=== PATIENT | female | born 1945 | race Caucasian/White ===

== ENCOUNTER 2023-09-16 06:45 | Emergency (ER) | payer MEDICARE, OTHER, SELFPAY ==
[2023-09-16 06:57] VITALS: BP 133/76; PULSE 91; RESP 20; TEMP 36.7; O2SAT 95; BMI 21.9
--- NOTE | 2023-09-16 07:13 | CRLHL7_ITS ---
For Patients: As a result of the Cures Act, medical imaging exams and procedure reports are released immediately into your electronic medical record. You may view this report before your referring provider. If you have questions, please contact your health care provider. Indication: Fall, shoulder pain Technique: Three views, 4 films Comparison: None Findings/Impression: Bones: No evidence of fracture. Joint spaces: Narrowing of the acromiohumeral distance consistent with underlying rotator cuff disease. Osteoarthritis at the glenohumeral joint with marginal osteophytes as well as acromioclavicular joint. Soft tissues: Unremarkable. Dictated by Vimal Koenig MD @ 09/16/2023 8:17:08 AM (Electronically Signed)
--- NOTE | 2023-09-16 07:13 | CRLHL7_ITS ---
For Patients: As a result of the Century Cures Act, medical imaging exams and procedure reports are released immediately into your electronic medical record. You may view this report before your referring provider. If you have questions, please contact your health care provider. INDICATION: Headache after a fall. TECHNIQUE: Head CT without contrast. COMPARISON: None available. FINDINGS: CSF spaces: Within normal limits for age. Brain parenchyma and extra-axial spaces: There are nonspecific low attenuation white matter changes consistent with chronic microvascular disease. Mild prominence of the convexity sulci consistent with age-related volume loss. Senescent right basal ganglia calcifications. No sign of mass, hemorrhage, or midline shift. Skull base and calvarium: The visualized paranasal sinuses and mastoid air cells demonstrate no acute or significant findings. The visualized orbits are grossly unremarkable. No skull fractures. IMPRESSION: No acute intracranial abnormality identified. Please note that all CT scans at this facility use dose modulation, iterative reconstruction, and/or weight-based dosing when appropriate to reduce radiation dose to as low as reasonably achievable. Dictated by Vivien Billingsley MD @ 09/16/2023 7:48:26 AM (Electronically Signed)
--- NOTE | 2023-09-16 07:13 | CRLHL7_ITS ---
For Patients: As a result of the Cures Act, medical imaging exams and procedure reports are released immediately into your electronic medical record. You may view this report before your referring provider. If you have questions, please contact your health care provider. INDICATION: Fall, new C5-C6 radiculopathy. TECHNIQUE: CT cervical spine without contrast. COMPARISON: None available.. FINDINGS: Vertebrae: Alignment is normal. There is a nondisplaced right posterior 1st rib fracture no additional fractures seen. There are bilateral cervical ribs. Discs and facet joints: There are diffuse degenerative changes in the disc spaces and facet joints, which is severe from C3-C5 and at C6-C7. Extraspinal findings: Atherosclerotic carotid artery calcifications. Subcentimeter hypodense right thyroid nodule. Minimal scarring in the visualized lung apices. No large pneumothorax. IMPRESSION: 1. Nondisplaced right posterior 1st rib fracture. No cervical spine fracture visualized. 2. Multilevel degenerative spondylosis. Please note that all CT scans at this facility use dose modulation, iterative reconstruction, and/or weight-based dosing when appropriate to reduce radiation dose to as low as reasonably achievable. Dictated by Vivien Billingsley MD @ 09/16/2023 7:54:33 AM (Electronically Signed)
--- NOTE | 2023-09-16 07:14 | ED.GENADULT ---
HPI - General Adult General Chief complaint: Fall/Minor Trauma Stated complaint: fall Time Seen by Provider: 09/16/23 06:47 Source: patient and family Mode of arrival: ambulatory Limitations: no limitations History of Present Illness HPI narrative: 78-year-old female presents to the ED 6 days after a mechanical type fall. Patient reports that on 09/11, she was walking to lamas the window to adjust the curtains. They were Mary presents stacked along the floor. She knew they were there but did not notice them when she was stepping, tripped over 1, falling into the window, hitting her left shoulder and head area and then slipping to the ground. No seizure, no loss of consciousness. No presyncopal type events contributing to the fall. No cardiac type symptoms or neurological stroke-like changes. She was able to get herself up but has been struggling with right arm pain and difficulty with abduction and rotation of the shoulder ever since. Has pain in the right shoulder blade area, right occipital area and right lower neck posteriorly. Pain does radiate down the right arm to the elbow. Patient did not want to upset the family she was staying with, therefore she waited until she got back home last night to inform her daughter of the injury. Daughter brings her into the ED this morning for further evaluation. There is no vomiting, no vision changes, no neurological changes so seated with the fall besides difficulty moving the right arm. Patient reports tenderness in the scapula area, achy and constant and worse with movement. Denies prior history of similar symptoms. Does not use any anticoagulants. No fever or recent illness. No difficulty moving legs, no back pain. Has not tried taking any medication today to help with her pain. Past medical history notable for depression. Reports that her only home medication is sertraline. Denies allergies. Socially she is a nonsmoker, recent family trip as stated above. ROS is notable for the generalized symptoms of fatigue and low energy for the last few days as well as feeling sad in addition to the musculoskeletal changes as described above. Otherwise denies times 12 systems. [facility] Social History Smoking Status: Former smoker How often do you have a drink containing alcohol: 2-4 times a month AUDIT-C Alcohol total score: 2 Non-prescribed substance use: denies use Exam Const: Vital Signs, click to edit/add: Vital Signs - 24 hr 09/16/23 06:57 Temperature 98.0 F Pulse Rate [Right Pulse Oximeter] 91 Respiratory Rate 20 Blood Pressure [Le ft Upper Arm] 133/76 Pulse Oximetry 95 Oxygen Delivery Me thod Room Air Documenting provider has reviewed patient's vital signs: yes Common normals: no apparent distress and alert General appearance: well kempt Other: Mildly hard of hearing and does seem to have some very mild cognitive impairment HENMT: Common normals: normocephalic, TM's normal bilaterally and external nose normal Head and scalp: normocephalic Face and sinus: normal facial exam Nose: external nose normal Tympanic membrane: TM's normal bilaterally Mouth: oral and palatal mucosa normal Throat: posterior oropharynx normal Eye: Common normals: PERRL, EOMs intact bilaterally and conjunctivae normal General eye: normal appearance of both eyes Conjunctiva: conjunctiva(e) normal Pupil: PERRL Neck & C-Spine: Common normals: full ROM and no meningeal signs Other: Tenderness to paraspinal muscles and also along C6/C7 area with cervical palpation. Chest: Common normals: inspection of chest normal Resp: Common normals: normal respiratory effort, no use of accessory muscles and clear to auscultation bilaterally Effort & inspection: able to speak in complete sentences Auscultation: clear to auscultation bilaterally Cardio: Common normals: regular rate, regular rhythm, S1 normal heart sound, S2 normal heart sound and no murmurs Rate: regular rate Rhythm: regular rhythm Heart sounds: S1 normal and S2 normal Extremity: Other: Left shoulder with normal range of motion. Right shoulder with limited abduction to about 30?, tenderness with internal or external rotation. Negative impingement signs on exam. Tenderness to palpation of supraspinatus and infraspinatus area. Generalized shoulder weakness. Neuro: Sensorium/orientation: alert Meningeal signs: no meningeal signs Speech: speech normal Other: Slow, shuffling gait but without other obvious signs of neurological asymmetry or stroke-like symptoms. Psych: Appearance: well kempt Attitude: calm Insight: fair Judgement: fair Skin: Common normals: no rashes or lesions noted Narrative: No bruising, injury or trauma. General skin exam: no rashes or lesions noted Course Course ED Course: Headache, neck pain and shoulder weakness following fall 6 days ago. Low risk for intracranial hemorrhage or cervical spine injury but tender on exam with persistent symptoms that are concerning. Recommend CT scan of the head, C-spine and x-ray of the right shoulder. Will give 1000 mg of Tylenol p.o. x1. Await clinical response and imaging. I do not think there is any benefit blood work in the fall does sound rather mechanical. Do not recommend further metabolic workup unless imaging finding suggest otherwise. Reevaluation(s) Time of Reevaluation #1: 08:28 Reevaluation #1: Discussed CT and x-ray findings with patient, posterior right 1st rib fracture. Discussed pain control with Tylenol and ibuprofen. Pain is improving somewhat on the Tylenol given here in the ED. Will offer sling for pain control only. Discussed range of motion exercise. Follow-up with primary care provider in a week, would benefit from referral to physical therapy at the time. Alarm symptoms reviewed that would warrant ED presentation. She verbalizes understanding and agreement. Vital Signs Vital signs: Initial Vital Signs Temperature 98.0 F 09/16/23 06:57 Temperature Source Temporal Artery Scan 09/16/23 06:57 Pulse Rate 91 09/16/23 06:57 Respiratory Rate 20 09/16/23 06:57 Blood Pressure 133/76 09/16/23 06:57 Blood Pressure Mean 95 09/16/23 06:57 Blood Pressure Position Sitting 09/16/23 06:57 Pulse Oximetry 95 09/16/23 06:57 Oxygen Delivery Method Room Air 09/16/23 06:57 Vital Signs Temperature 98.0 F 09/16/23 06:57 Pulse Rate 91 09/16/23 06:57 Respiratory Rate 20 09/16/23 06:57 Blood Pressure 133/76 09/16/23 06:57 Pulse Oximetry 95 09/16/23 06:57 Oxygen Delivery Method Room Air 09/16/23 06:57 Temperature 98.0 F 09/16/23 06:57 Pulse Rate 91 09/16/23 06:57 Respiratory Rate 20 09/16/23 06:57 Blood Pressure 133/76 09/16/23 06:57 Pulse Oximetry 95 09/16/23 06:57 Oxygen Delivery Method Room Air 09/16/23 06:57 Medications Administered Medications: Discontinued Medications Generic Name Dose Route Start Last Admin Trade Name Freq PRN Reason Stop Dose Admin Acetaminophen 650 mg 09/16/23 07:13 09/16/23 07:30 Acetaminophen 325 Mg Tablet PO 09/16/23 07:14 650 mg ONCE ONE Administration Medical Decision Making Imaging Data CT scan - head: Attestation: I have reviewed the pertinent imaging results. My impression: Mild degenerative changes but no obvious intracranial hemorrhage or skull fracture Radiologist's impression: IMPRESSION: No acute intracranial abnormality identified. CT cervical spine: Attestation: I have reviewed the pertinent imaging results. My impression: No obvious cervical fracture but there are a lot of degenerative changes.. Radiologist reporting right posterior 1st rib fracture Radiologist's impression: IMPRESSION: 1. Nondisplaced right posterior 1st rib fracture. No cervical spine fracture visualized. 2. Multilevel degenerative spondylosis. Shoulder x-ray: Attestation: I have reviewed the pertinent imaging results. My impression: Lots of arthritis but no fracture Radiologist's impression: Findings/Impression: Bones: No evidence of fracture. Joint spaces: Narrowing of the acromiohumeral distance consistent with underlying rotator cuff disease. Osteoarthritis at the glenohumeral joint with marginal osteophytes as well as acromioclavicular joint. Soft tissues: Unremarkable. Dictated by Vimal Koenig MD @ 09/16/2023 8:17:08 AM Discharge Plan Discharge Clinical Impression: Fracture of one rib of right side, Shoulder sprain Patient Disposition: Home w/ Parent or Adult Condition: Stable Instructions: Rib Fracture (ED), Shoulder Sprain (ED) Additional Instructions: It seems as though you have a sprain of your shoulder, neck and head contusion from your fall. There is also a small nondisplaced fracture of the back right upper rib. There is quite a bit of arthritis in both your neck and shoulder which are likely making the pain worse. I recommend a shoulder sling to help with this comfort for the next week. I would like for you to make a follow-up appointment with her primary care doctor in 1 week to recheck things. You would likely benefit from physical therapy of the shoulder and neck. For pain, I recommend Tylenol Arthritis 2 tablets 2 times daily for pain. You may also use ibuprofen 400 mg up to every 6 hours. It is okay to use heat or ice if these feel helpful. It is common for the pain to radiate down the arm a little bit. Your strength should improve as the sprain and fracture heal, but you may require some assistance with bathing, shopping and house work until then. Activity Level: Activity as Tolerated Discharge Diet: Regular Follow Up/Referrals: Kristi Phan DO [Primary Care Provider] - Stand Alone Forms: My[facility] Info Instructions
[2023-09-16] MEDS: ACETAMINOPHEN 325 MG TABLET 650 MG PO (07:30)
== END 2023-09-16 08:50 | disposition home or self-care (01) ==
PROVIDERS: Emergency Provider Family Medicine; PCP Family Medicine
DX: M25.511 Pain in right shoulder (principal); S22.31XA Fracture of one rib, right side, initial encounter for closed fracture; W01.0XXA Fall on same level from slipping, tripping and stumbling without subsequent striking against object, initial encounter
CPT/HCPCS: 70450; 72125; 73030; 99284; A9270

== ENCOUNTER 2024-09-28 11:48 | Outpatient (CLI) | payer MEDICARE, OTHER, SELFPAY ==
--- NOTE | 2024-09-28 13:22 | P.ANES_ITS ---
Anesthesia Charges Start Date/Time Anesthesia Start Date: 09/28/24 Anesthesia Start Time: 12:48 Stop Date/Time Anesthesia Stop Date: 09/28/24 Anesthesia Stop Time: 13:20 Summary Extremes of Age - Over 70 or under 1: DIRECTOR PRESALES Coding CPT Codes CPT Codes: WILBERT LWR INTST NDSC NOS - 66184 ([id number]) P2 - PATIENT W/MILD SYST DISEASE, QZ - DIRECTOR PRESALES SVC W/O BUTCHER FISH BY Additional Codes: Summary - Extremes of Age - Over 70 or under 1: DIRECTOR PRESALES ([id number])
--- NOTE | 2024-09-28 13:22 | W.ANESCHARGE ---
Anesthesia Charges Start Date/Time Anesthesia Start Date: 09/28/24 Anesthesia Start Time: 12:48 Stop Date/Time Anesthesia Stop Date: 09/28/24 Anesthesia Stop Time: 13:20 Summary Extremes of Age - Over 70 or under 1: PLANE RUNNER Coding CPT Codes CPT Codes: WILBERT LWR INTST NDSC NOS - 43429 ([id number]) P2 - PATIENT W/MILD SYST DISEASE, QZ - PLANE RUNNER SVC W/O STUDENT LIFE VICE PRESIDENT BY Additional Codes: Summary - Extremes of Age - Over 70 or under 1: PLANE RUNNER ([id number])
== END 2024-09-28 11:49 | disposition home or self-care (01) ==
LOC: OP CLINIC 11:52
PROVIDERS: PCP Family Medicine; Visit Provider Internal Medicine Gastroenterology
DX: Z12.11 Encounter for screening for malignant neoplasm of colon (principal); D12.3 Benign neoplasm of transverse colon; D12.5 Benign neoplasm of sigmoid colon; Q43.8 Other specified congenital malformations of intestine; Z86.0101 Personal history of adenomatous and serrated colon polyps
CPT/HCPCS: 00811; 45385; 88305; 99100; J2405; J2704

== ENCOUNTER 2024-12-23 05:01 | Emergency (ER) | payer MEDICARE, OTHER, SELFPAY ==
--- OUTSIDE RECORDS SUMMARY | 2024-12-23 05:03 | XMS_ITS | Clinical Summary ---
Author Organization [employer] [facility] Address [address] [place] [address] Care Team Providers Care Photographic Technician Name Role Phone Kristi Phan Primary Care Provider Yonathan Ornelas MD Unavailable Unavailable Arleen Ureña Rich Unavailable [phone] Allergies No known active allergies Medications ibuprofen (ADVIL; MOTRIN) 200 mg tablet Take 1 tablet by mouth 4 times daily if needed. One tablet in the am and during the day as needed and 2-3 at bed time depending on pain level 0 10/21/19 10 Active Calcium Carbonate-Vit D3-Min (CALCIUM 600 + MINERALS) 600-200 mg-unit tablet Take 1 tablet by mouth once daily. 0 10/22/19 11 Active naproxen (ALEVE) 220 mg tablet Take 1 tablet by mouth every 8 hours if needed. 0 04/16/20 15 Active cholecalciferol (VITAMIN D) 1,000 unit capsule Take 1 capsule by mouth once daily. 0 12/03/19 16 Active d-mannose powd 1 TEASPOON 1 X PER week MIXED WITH 1/2 CUP WATER 0 02/26/20 20 Active medication order composer Cranactin veg cap for urinary tract health 0 02/26/20 20 Active medication order composer Evening primrose oil - one softgel per day 0 02/26/20 20 Active medication order composer Urinary tract PROBIOTIC - 2 CAPSULES DAILY 0 02/26/20 20 Active Nxdcx-4-CWI-EPA-Fi sh Oil 1,000 mg (120 mg-180 mg) cap Take 1 capsule by mouth. 0 02/26/20 20 Active zinc 50 mg tablet As needed. 0 02/26/20 20 Active medication order composer Vitamin C 500mg once daily. 0 02/27/20 20 Active LORazepam (ATIVAN) 0.5 mg tabIndications:Sev ere anxiety Take 0.5-1 tablets by mouth 2 times daily if needed for Anxiety. 10 tablet 1 03/05/20 20 Active lecithin, soy, bulk, powd As directed. 10g per dose. One dose daily granules 0 05/12/20 20 Active acetaminophen (TYLENOL EXTRA STRGTH) 500 mg tablet Take 2 tablets by mouth every 6 hours if needed. Max acetaminophen dose: 4000mg in 24 hrs. 0 08/29/20 20 Active QUERCETIN ORAL Take by mouth. Active polyethylene glycol-electrolyte (GOLYTELY) 236-22.74-6.74 -5.86 gram suspensionIndicati ons:Encounter for screening colonoscopy Drink 2 liters (half the bottle) the day before colonoscopy and 2 liters (remaining prep) 6 hours prior to colonoscopy appointment. 4000 mL 09/20/19 25 Active ondansetron (Zofran) 4 mg tabletIndications: Nausea Take 1 Tablet (4 mg) by mouth every 8 hours if needed for Nausea/Vomiting. 8 Tablet 09/24/19 25 Active sertraline (ZOLOFT) 100 mg tabletIndications: Severe anxiety TAKE ONE TABLET BY MOUTH EVERY DAY IN THE MORNING. 90 Tablet 3 10/30/19 25 Active rosuvastatin 10 mg tabletIndications: Hyperlipidemia, unspecified hyperlipidemia type Take 1 Tablet (10 mg) by mouth at bedtime. 90 Tablet 3 12/14/19 25 Active Active Problems Problem Noted Date Diagnosed Date Anxiety 12/13/2024 Dyslipidemia 12/13/2024 Arthritis of left foot 10/24/2018 Elevated fasting glucose 03/17/2016 Sensorineural hearing loss, bilateral 05/16/2015 Adenomatous colon polyp 10/05/2013 Overview (10/03/2024): Colonoscopy 09/2013 polyp repeat in 5 years Colonoscopy 10/2018 long colon, few diverticuli, repeat in 5 years Colonoscopy 09/2024 2-SSA, no repeat give age over 80 Vitamin D deficiency 01/20/2012 Esophageal reflux 11/17/2006 Resolved Problems Problem Noted Date Diagnosed Date Resolved Date Depression, recurrent 03/04/20222022 Encounters Date Type Department Care Team Description 12/13/2024 Telephone [facility] [address] [place] [address] Kristi Phan DO Results 12/12/2024 2:15 PM CDT Office Visit [facility] [address] [place] [address] Kristi Phan DO Medicare ANNUAL (subsequent) Visit (79 yr/); Derm Problem (red spots on right side cheek/brown spot on left side cheek/mole on chest area) 12/12/2024 Travel 10/26/2024 Refill [facility] [address] [place] [address] Kristi Phan DO Refill Request (Sertraline) 10/03/2024 Telephone [facility] [address] [place] [address] Kristi Phan DO Appointment (Up Coming MRI) 10/02/2024 Telephone [facility] [address] [place] [address] Kristi Phan DO Results 09/28/2024 11:45 AM POWER MARKETER Office Visit [facility] at [address] [address] Lazaro Larose MD 09/28/2024 Lab Requisition [facility] [phone] Lazaro Larose MD 09/28/2024 Travel 09/26/2024 Telephone [facility] [address] [place] [address] Lazaro Larose MD 09/24/2024 Telephone [facility] [address] [place] [address] Kristi Phan DO returning call (Return call) 09/24/2024 Refill [facility] [address] [place] [address] Lazaro Larose MD Questions from Last 3 Months Immunizations Immunization Administration Dates Next Due Amb Influenza, Inactivated A IIV4 (Age 65+ Years) Preserv Free 07/10/2020 Influenza, IIV3 (Age >=3 years) 08/15/2007 Tdap 10/22/2010 Family History Medical History Relation Name Comments Cancer Father brain Cancer-breast Sister 2 Cancer-breast Sister 3 Diabetes Sister 4 nephropathy Relation Name Status Comments Father (Age 68) brain ca Mother (Age 70s) dementia Sister 1 (Age 38) MVA Sister 2 Sister 3 Sister 4 Social History Tobacco Use Types Packs/Day Years Used Date Smoking Tobacco: Former Cigarettes 0.5 13 0 09/12/1961 - 09/12/1974 Smokeless Tobacco: Never Tobacco Cessation:Counseling Given: Not Answered Alcohol Use Standard Drinks/Week Comments Not Currently 7 (1 standard drink = 0.6 oz pur e alcohol) OCCASSIONAL PHQ-2 Answer Date Recorded PHQ-2 TOTAL SCORE 2 12/12/2024 Social Connections Answer Date Recorded Do you often feel lonely or isolated from those around you? 0 12/12/2024 Financial Resource Strain Answer Date R ecorded Difficulty of Paying Living Expenses 3 12/12/2024 Difficulty of Paying Living Expenses Not on file 12/12/2024 Food Insecurity Answer Date Recorded Do you worry your food will run out before you are able to buy more? 1 12/12/2024 Transportation Needs Answer Date Record ed Does lack of transportation keep you from medica l appointments? 1 12/12/2024 Does lack of transportation keep you from work, meetings or getting things that you need? 1 12/12/2024 Housing Stability Answer Date Recorded What is your housing situation today? 1 12/12/2024 Utilities Answer Date Recorded Do you have trouble paying f or utilities (for example, heat, electricity, water, phone)? 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 Not on file Not on yola e Not on file Obstetrics History Para Term AB IAB SAB Ectopic Multiple Livin g Live Births 2 2 2 Date Outcome GA Total Labor Labor/2nd/3rd Weight Sex Type Anes PTL Esther A1 A5 Name Clin Term Term Last Filed Vital Signs Vital Sign Reading Time Taken Comments Blood Pressure 101/59 12/12/2024 2:22 PM CDT Pulse 67 12/12/2024 2:22 PM CDT Temperature 36.6 C (97.9 F) 12/12/2024 2:22 PM CDT Respiratory Rate 18 05/12/2022 8:31 AM CDT Oxygen Saturation 95% 12/12/2024 2:22 PM CDT Inhaled Oxygen Concentration - - Weight 58 kg (127 lb 12.8 oz) 12/12/2024 2:22 PM CDT Height 156.3 cm (5' 1.54) 12/12/2024 2:22 PM CD T Body Mass Index 23.73 12/12/2024 2:22 PM CDT Plan of Treatment Upcoming Encounters Date Type Department Care Team (Late st Contact Info) Description 03/20/2025 2:00 PM CDT Orders Only [facility] [address] [place] [address] Lab, [facility] Maintenance Due Date Last Done Comments Pneumococcal series for age 50+ (1 of 1 - PCV) 1993 Zoster (shingles) series for age 50+ (1 of 2) 1993 RSV vaccine for adults or (1 - 1-dose 75+ series) 2018 Tetanus booster 10/22/2020 10/22/2010, 10/22/2010 COVID-19 vaccine series ( - season) 2024 Influenza Vaccine (Season Ended) 2025 07/10/20 20, 08/15/2007 BMI (ht and wt on same day) for age 18+ 12/12/2025 12/12/2024, 10/24/2023, 05/12/2022, Additional history exists Depression screening for age 12+ 12/13/2025 12/13/2024, 12/12/2024, 02/27/2024, Additional history exists Medicare Wellness for age 65+ 12/13/2025, 10/24/2023, 10/31/2019, Additional history exists Tdap Completed 10/22/2010 DEXA/DXA scan for age 65+ Completed 2014, 02/20/2013, 10/22/2010 (Declined), Additional history exists Procedures Procedure Name Priority Date/Time Associated Diagnosis Comments BASIC METABOLIC PANEL Routine 12/12/2024 3:55 PM CDT Diabetes mellitus screening LIPID PANEL W REFLEX MEASURED LDL Routine 12/12/2024 3:55 PM CDT Dyslipidemia LAB TRACKING EVENT Routine 09/28/2024 1: 10 PM POWER MARKETER PATH TISSUE EXAM Routine 09/28/2024 1:10 PM POWER MARKETER COLONOSCOPY SCREENING Routine 09/28/2024 12:00 AM POWER MARKETER History of colon polyps XR DXA BONE DENSITY 2 SITES AXIAL Routine 03/04/2015 4:28 PM CDT Osteopenia from Last 3 Months or Most Recently Relevant to Health Maintenance Results * (ABNORMAL) LIPID PANEL W REFLEX MEASURED LDL (12/12/2024 3:55 PM CDT) CHOLESTEROL, TOTAL 311(H) <200 mg/dL [employer] HDL CHOLESTEROL 58 > OR = 50 mg/dL [employer] TRIGLYCERIDES 160(H) <150 mg/dL [employer] LDL-CHOLESTEROL 220(H) mg/dL (calc) [employer] Comment: LDL-C levels > or = 190 mg/dL may indicate familial hypercholesterolemia (FH). Clinical assessment and measurement of blood lipid levels should be considered for all first degree relatives of patients with an FH diagnosis. LDL Cholesterol (LDL-C) levels > or = 300 mg/dL may indicate homozygous familial hypercholesterolemia (HoFH). Untreated, these extremely high LDL-C levels can result in premature CV events and mortality. Patients should be identified early and provided appropriate interventions to reduce the cumulative LDL-C burden from . For questions about testing for familial hypercholesterolemia, please call [facility] Client Services at [email or web address]. Honorio Palacios, et al. J National Lipid Association Recommendations for Patient-Centered Management of Dyslipidemia: Part 1 Journal of Clinical Lipidology 2015;9(2), 129-169. Bear Auqino et al. (2014). Homozygous familial hypercholesterolaemia: new insights and guidance for clinicians to improve detection and clinical management. Heart Journal, 35(32), 0293-8792. Reference range: <100 Desirable range <100 mg/dL for primary prevention; <70 mg/dL for patients with CHD or diabetic patients with > or = 2 CHD risk factors. LDL-C is now calculated using the Nigel calculation, which is a validated novel method providing better accuracy than the Friedewald equation in the estimation of LDL-C. Lazaro GERARDO et al. KORINA. 2013;310(19): 6261-3514 (http://education.MyWedding/faq/FLL255) CHOL/HDLC RATIO 5.4(H) <5.0 (calc) Gamar Garrett Zavala NON HDL CHOLESTEROL 253(H) <130 mg/dL (calc) [email or web address] Zavala Comment: Non-HDL level > or = 220 is very high and may indicate genetic familial hypercholesterolemia (FH). Clinical assessment and measurement of blood lipid levels should be considered for all first-degree relatives of patients with an FH diagnosis. For patients with diabetes plus 1 major ASCVD risk factor, treating to a non-HDL-C goal of <100 mg/dL (LDL-C of <70 mg/dL) is considered a therapeutic option. Blood BLOOD SPECIMEN / Unknown 12/12/2024 3:55 PM CDT 12/12/2024 3:55 PM CDT us Kristi Phna DO CHEMISTRY Final Resul t [employer] [facility] [address] [place] [address], [email or web address] [address] [place] [address] * (ABNORMAL) BASIC METABOLIC PANEL (12/12/2024 3:55 PM CDT) [facility] GLUCOSE 93 65 - 99 mg/dL [facility] evans Zavala Comment: Fasting reference interval UREA NITROGEN (BUN) 33(H) 7 - 25 mg/dL [facility] evans Zavala CREATININE 1.40(H) 0.60 - 0.95 mg/dL [facility] ood Lucas EGFR 38(L) > OR = 60 mL/min/1.7 3m2 [facility] BUN/CREATININE RATIO 24(H) 6 - 22 (calc) [facility] SODIUM 137 135 - 146 mmol/L [facility] POTASSIUM 4.3 3.5 - 5.3 mmol/L [facility] CHLORIDE 103 98 - 110 mmol/L [facility] CARBON DIOXIDE 24 20 - 32 mmol/L [facility] ELECTROLYTE BALANCE 10 7 - 17 mmol/L (calc) [facility] CALCIUM 9.5 8.6 - 10.4 mg/dL [facility] Blood BLOOD SPECIMEN / Unknown 12/12/2024 3:55 PM CDT 12/12/2024 3:55 PM CDT us Kristi Nguyen Detert DO CHEMISTRY Final Resul t [facility] [address] [place] [address], [facility] [address] [place] [address] * LAB TRACKING EVENT (09/28/2024 1:10 PM POWER MARKETER) Other (Other) Client Collect / Unknown 09/28/2024 1:10 PM POWER MARKETER 09/28/2024 7:19 PM POWER MARKETER us Lazaro Larose MD LAB BILL ONLY Final Res ult [facility] [address] [place] [address], [place] * PATH TISSUE EXAM (09/28/2024 1:10 PM POWER MARKETER) Case Report Pathology Report Case: [id number] Authorizing Provider: Lazaro Larose MD Collected: 09/28/2024 1310 Ordering Location: [facility] Received: 10/01/2024 0851 Pathologist: Edenilson Miller MD Specimens: A) - Transverse Colon Polyp B) - Sigmoid Colon, polyp 10/02/2024 3:24 PM POWER MARKETER [facility] Final Diagnosis A) COLON, TRANSVERSE, POLYPECTOMY: 1. Sessile serrated adenoma 2. Negative for overt dysplasia 3. Per the colonoscopy report: a. Polyp size: 8 mm b. Resection: Complete c. Retrieval: Complete B) COLON, SIGMOID, POLYPECTOMY: 1. Sessile serrated adenoma 2. Negative for overt dysplasia 3. Per the colonoscopy report: a. Polyp size: 5 mm b. Resection: Complete c. Retrieval: Complete 10/02/2024 3:24 PM POWER MARKETER [facility] at [address] POWER MARKETER Clinical Information Ms. Arnold is a 79 y.o. with personal history of colonic polyps who presents for high risk colon cancer surveillance. 10/02/2024 3:24 PM MERGED WITH [facility] Gross Description A) Received in formalin are 7 myers-pink soft to rubbery polypoid tissues ranging from 2 mm to 7 mm. The largest polyp is inked and sectioned. It is labeled with the patient's name and designated transverse colon polyp. B) Received in formalin is a 6 mm myers-pink rubbery polypoid tissue. The specimen is inked and bisected. Entirely submitted in a single cassette. It is labeled with the patient's name and designated sigmoid colon polyp. Tyler Pete Urias 10/01/2024 9:16 AM 10/02/2024 3:24 PM POWER MARKETER [facility] Microscopic Description The final diagnosis is based on microscopic examination of appropriate sections of all specimens. 10/02/2024 3:24 PM POWER MARKETER [facility] Additional Information Interpreted at [facility], Central Laboratory - [address], [place] [address] 10/02/2024 3:24 PM POWER MARKETER [facility] Other SPECIMEN FROM COLON / Unknown 09/28/2024 1:10 PM POWER MARKETER 10/01/2024 8:51 AM POWER MARKETER Specimen (specimen) SPECIMEN FROM COLON / Unknown 09/28/2024 1:10 PM POWER MARKETER 10/01/2024 8:51 AM POWER MARKETER Lazaro Larose MD PATHOLOGY/CYTOLOGY Final Result [facility] [address] [address], * COLONOSCOPY SCREENING (09/28/2024 12:00 AM POWER MARKETER) us Kristi Phan DO GI PROCEDURE ORD Edited Res ult - Final * (ABNORMAL) XR DXA BONE DENSITY 2 SITES (03/04/2015 4:28 PM CDT) Anatomical Region Laterality Modality Spine, HIPS, HIPL, HIPR Other Narrative 03/24/2015 12:06 PM CDT Please see scanned document for results of this study. us Kristi Phan DO DEXA Final Resul t from Last 3 Months or Most Recently Relevant to Health Maintenance Insurance [employer] ONLY Care Teams Photographic Technician Relationship Specialty Start Date End Date Kristi Phan [place] [address] PCP - General 09/17/08 Yonathan Ornelas MD [address] [place] [address] Ophthalmology Surgery 02/16/13 Arleen Ureña AuD [address] [facility] [place] [address] Audiology 05/16/15
[2024-12-23 05:13] VITALS: BP 152/78; PULSE 77; RESP 16; TEMP 36.7; O2SAT 96
[2024-12-23 06:06] LABS: Basophils Absolute Auto 0.04 K/uL (0.00-0.30); Basophils Percent Auto 0.4 % (0.0-3.0); Eosinophils Absolute Auto 0.03 K/uL (0.00-0.50); Eosinophils Percent Auto 0.3 % (0.0-7.0); Hematocrit 38.9 % (33.0-51.0); Hemoglobin* 12.8 gm/dL (12.0-16.0); Immature Granulocytes Abs Auto 0.01 K/uL (0.00-0.30); Immature Granulocytes Pct Auto 0.1 %; Lymphocytes Percent Auto 16.6 % (20-44); Mean Corpuscular HGB Conc 33 gm/dL (32-36); Mean Corpuscular Hemoglobin 31 pg (26-34); Mean Corpuscular Volume 94 fL (80-100); Monocytes Percent Auto 6.4 % (0.0-11.0); Neutrophils Percent Auto 76.2 % (42.0-72.0); Platelet Count* 184 K/uL (140-440); RDW Coefficient of Variation % 12.8 % (11.5-15.5); Red Blood Count 4.12 m/uL (4.00-5.20); White Blood Count* 9.21 K/uL (4.50-11.00)
[2024-12-23 06:09] LABS: Lactate* 1.2 mmol/L (0.5-1.9)
[2024-12-23 06:17] LABS: Slide Review Reflex No
[2024-12-23 06:28] LABS: Albumin* 4.8 g/dL (3.3-5.0); Chloride* 105 mmol/L (96-114); Potassium* 4.8 mmol/L (3.6-5.1); Sodium* 138 mmol/L (135-149)
[2024-12-23 06:31] LABS: Alanine Aminotransferase* 19 U/L (4-35); Alkaline Phosphatase* 70 U/L (40-150); Anion Gap 10 mEq/L (7-15); Aspartate Amino Transferase* 27 U/L (12-35); Bilirubin Total* 0.8 mg/dL (0.1-1.5); Blood Urea Nitrogen* 20 mg/dL (7-30); Carbon Dioxide* 23 mmol/L (20-32); Creatinine* 1.3 mg/dL (0.5-1.5); Estimated Glomerular Filt Rate 41 ml/min; Total Protein* 7.7 g/dL (6.0-8.3)
[2024-12-23 06:32] LABS: Calcium* 9.6 mg/dL (8.4-10.6); Glucose* 118 mg/dL (60-115)
[2024-12-23 06:51] LABS: NT Pro B Type NatriureticPept* 260 pg/mL
[2024-12-23 07:12] LABS: PCR FLU A Negative PCR FLU A (Negative); PCR FLU B Negative PCR FLU B (Negative); SARS PCR* Negative SARS-CoV-2 (Negative)
[2024-12-23 07:20] VITALS: BP 139/86; PULSE 80; RESP 18; O2SAT 97
--- OUTSIDE RECORDS SUMMARY | 2024-12-23 07:46 | XMS_ITS | Clinical Summary ---
Author Organization [employer] [facility] Address [address] [place] [address] Care Team Providers Care Curriculum Writer Name Role Phone Kristi Phan Primary Care Provider Yonathan Ornelas MD Unavailable Unavailable Arleen Ureña Rich Unavailable [phone] Allergies No known active allergies Medications [...] 2 CAPSULES DAILY 0 02/26/20 20 Active Gqbtt-3-DDC-EPA-Fi sh Oil 1,000 mg (120 mg-180 mg) [...] Type Department Care Team Description 12/13/2024 Telephone [facility] [address] [place] [address] Kristi Phan DO Results 12/12/2024 2:15 PM CDT Office Visit [facility] [address] [place] [address] Kristi Phan DO Medicare ANNUAL (subsequent) Visit (79 yr/); Derm Problem (red spots on right side cheek/brown spot on left side cheek/mole on chest area) 12/12/2024 Travel 10/26/2024 Refill [facility] [address] [place] [address] Kristi Phan DO Refill Request (Sertraline) 10/03/2024 Telephone [facility] [address] [place] [address] Kristi Phan DO Appointment (Up Coming MRI) 10/02/2024 Telephone [facility] [address] [place] [address] Kristi Phan DO Results 09/28/2024 11:45 AM POLICE SURGEON Office Visit [facility] at [address] [address] Lazaro Larose MD 09/28/2024 Lab Requisition [facility] [phone] Lazaro Larose MD 09/28/2024 Travel 09/26/2024 Telephone [facility] [address] [place] [address] Lazaro Larose MD 09/24/2024 Telephone [facility] [address] [place] [address] Kristi Phan DO returning call (Return call) 09/24/2024 Refill [facility] [address] [place] [address] Lazaro Larose MD Questions from Last 3 [...] on file Legal Sex Female 7:19 AM POLICE SURGEON Gender Identity Not on file Sexual Orientation Not on file 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 Not on file Not on [...] Description 03/20/2025 2:00 PM CDT Orders Only [facility] [address] [place] [address] Lab, [facility] Health Maintenance Due Date Last [...] TRACKING EVENT Routine 09/28/2024 1: 10 PM POLICE SURGEON PATH TISSUE EXAM Routine 09/28/2024 1:10 PM POLICE SURGEON COLONOSCOPY SCREENING Routine 09/28/2024 12:00 AM POLICE SURGEON History of colon polyps XR DXA BONE DENSITY 2 SITES AXIAL Routine 03/04/2015 4:28 PM CDT Osteopenia from Last 3 Months or Most Recently Relevant to Health Maintenance Results * (ABNORMAL) LIPID PANEL W REFLEX MEASURED LDL (12/12/2024 3:55 PM CDT) CHOLESTEROL, TOTAL 311(H) <200 mg/dL [employer] HDL CHOLESTEROL 58 > OR = 50 mg/dL [employer] TRIGLYCERIDES 160(H) <150 mg/dL [employer] LDL-CHOLESTEROL 220(H) mg/dL (calc) [employer] Comment: LDL-C levels > or = 190 [...] about testing for familial hypercholesterolemia, please call [employer] Client Services at [email or web address]. Honorio Palacios, et al. J National Lipid Association Recommendations for Patient-Centered Management of Dyslipidemia: Part 1 Journal of Clinical Lipidology 2015;9(2), 129-169. Bear Aquino et al. (2014). Homozygous familial hypercholesterolaemia: new insights and guidance for clinicians to improve detection and clinical management. Heart Journal, 35(32), 6332-1821. Reference range: <100 Desirable range <100 mg/dL for primary prevention; <70 mg/dL for patients with CHD or diabetic patients with > or = 2 CHD risk factors. LDL-C is now calculated using the Nigel calculation, which is a validated novel method providing better accuracy than the Friedewald equation in the estimation of LDL-C. Lazaro GERARDO et al. KORINA. 2013;310(19): 0732-2693 (http://education.Ranovus/faq/AHE356) CHOL/HDLC RATIO 5.4(H) <5.0 (calc) [employer] Garrett Zavala NON HDL CHOLESTEROL 253(H) <130 mg/dL (calc) [employer] Zavala Comment: Non-HDL level > or = [...] CDT 12/12/2024 3:55 PM CDT us Kristi Phan DO CHEMISTRY Final Resul t [employer] [facility] [address] [place] [address], [facility] [address] [place] [address] * (ABNORMAL) BASIC METABOLIC PANEL (12/12/2024 3:55 PM CDT) [facility] GLUCOSE 93 65 - 99 mg/dL [employer] evans Zavala Comment: Fasting reference interval UREA NITROGEN (BUN) 33(H) 7 - 25 mg/dL [employer] evans Zavala CREATININE 1.40(H) 0.60 - 0.95 mg/dL [employer] ood Lucas EGFR 38(L) > OR = [...] Detert DO CHEMISTRY Final Resul t [facility] [address] [place] [address], [facility] [address] [place] [address] * LAB TRACKING EVENT (09/28/2024 1:10 PM POLICE SURGEON) Other (Other) Client Collect / Unknown 09/28/2024 1:10 PM POLICE SURGEON 09/28/2024 7:19 PM POLICE SURGEON us Lazaro Larose MD LAB BILL ONLY Final Res ult [facility] [address] [place] [address], [place] * PATH TISSUE EXAM (09/28/2024 1:10 PM POLICE SURGEON) Case Report Pathology Report Case: [id number] Authorizing Provider: Lazaro Larose MD Collected: 09/28/2024 1310 Ordering Location: [facility] Received: 10/01/2024 0851 Pathologist: Edenilson Miller MD Specimens: A) - Transverse Colon Polyp B) - Sigmoid Colon, polyp 10/02/2024 3:24 PM POLICE SURGEON [facility] Final Diagnosis A) [...] Complete c. Retrieval: Complete 10/02/2024 3:24 PM POLICE SURGEON [facility] at [address] POLICE SURGEON Clinical Information Ms. Arnold is a 79 y.o. with personal history of colonic polyps who presents for high risk colon cancer surveillance. 10/02/2024 3:24 PM [facility] Gross Description A) Received in [...] Urias 10/01/2024 9:16 AM 10/02/2024 3:24 PM POLICE SURGEON [facility] Microscopic Description The final diagnosis is based on microscopic examination of appropriate sections of all specimens. 10/02/2024 3:24 PM POLICE SURGEON [facility] Additional Information Interpreted at [facility], Central Laboratory - [address] [address] 10/02/2024 3:24 PM POLICE SURGEON [facility] Other SPECIMEN FROM COLON / Unknown 09/28/2024 1:10 PM POLICE SURGEON 10/01/2024 8:51 AM POLICE SURGEON Specimen (specimen) SPECIMEN FROM COLON / Unknown 09/28/2024 1:10 PM POLICE SURGEON 10/01/2024 8:51 AM POLICE SURGEON Lazaro Larose MD PATHOLOGY/CYTOLOGY Final Result [facility] [address] [place] [address], * COLONOSCOPY SCREENING (09/28/2024 12:00 AM POLICE SURGEON) us Kristi Phan DO GI PROCEDURE ORD [...] Most Recently Relevant to Health Maintenance Insurance [employer] ONLY Care Teams Curriculum Writer Relationship Specialty Start Date End Date Kristi Phan [place] [address] PCP - General 09/17/08 Yonathan Ornelas MD [address] [place] [address] Ophthalmology Surgery 02/16/13 Arleen Ureña AuD [address] [facility] [id number] Audiology 05/16/15
--- NOTE | 2024-12-23 09:02 | ED.GENADULT ---
HPI - General Adult General Chief complaint: Dental/Oral/Mouth Injury/Pain Stated complaint: mouth sore/swollen, weakness Time Seen by Provider: 12/23/24 07:05 Source: patient Mode of arrival: ambulatory Limitations: no limitations History of Present Illness HPI narrative: 79-year-old female presents to the emergency department with very vague complaints in the wee hours. She reports that she has swelling of her lower gums and tenderness on the inside of her lower lip. She has some mild upper stomach discomfort but normal appetite. She reports that she did not try taking any medications to help with her symptoms but was so worried about it overnight that she could not sleep. She had bilateral hand tingling briefly this morning that has since improved and a sensation of tightness in her chest at rest last night that only lasted a few minutes but is not present on exertion and is not currently present. She started rosuvastatin about a week ago and wonders if her new medication could be the cause. No fever. No fall. No focal neurological changes. No shortness of breath, no cardiac arrhythmia. No prior history of similar symptoms. No illness exposures. No pertinent travel. Past medical history notable for anxiety disorder, hyperlipidemia. Current home medications are rosuvastatin 10 mg at bedtime, sertraline 100 mg once daily. she is a nonsmoker, ROS is notable for the vague and HEENT symptoms. Otherwise denies times 12 systems. Related Data Home Medications ?Medication ?Instructions ?Recorded ?Confirmed rosuvastatin 10 mg tablet 10 mg PO QPM 12/23/24 12/23/24 sertraline 100 mg tablet 100 mg PO QAM 12/23/24 12/23/24 Allergies Allergy/AdvReac Type Severity Reaction Status Date / Time No Known Drug Allergies Allergy Verified 12/23/24 05:22 [facility] Social History Smoking Status: Former smoker How often do you have a drink containing alcohol: 2-4 times a month AUDIT-C Alcohol total score: 2 Non-prescribed substance use: denies use Exam Const: Vital Signs, click to edit/add: Vital Signs - 24 hr 12/23/24 05:13 Temperature 98.1 F Pulse Rate [Pulse Oximeter] 77 Respiratory Rate 16 Blood Pressure [Ri ght Upper Arm] 152/78 H Pulse Oximetry 96 Oxygen Delivery Me thod Room Air Documenting provider has reviewed patient's vital signs: yes Common normals: alert General appearance: well kempt Other: Anxious but nontoxic appearing. Answers questions appropriately. Redirectable with the anxiety. Appears well nourished, well hydrated. HENMT: Common normals: normocephalic and moist oral mucous membranes Head and scalp: normocephalic Face and sinus: normal facial exam Throat: posterior oropharynx normal Other: Mild swelling to the lower anterior gums. Aphthous ulcers present on inner lower lip mucosa. No significant swelling of the lips, you could mucosa and posterior pharynx are normal in appearance. Nares appear normal. Eye: Common normals: conjunctivae normal General eye: normal appearance of both eyes Conjunctiva: conjunctiva(e) normal Neck & C-Spine: Common normals: no lymphadenopathy Resp: Common normals: normal respiratory effort, no use of accessory muscles and clear to auscultation bilaterally Effort & inspection: able to speak in complete sentences Auscultation: clear to auscultation bilaterally Cardio: Common normals: regular rate, regular rhythm, S1 normal heart sound, S2 normal heart sound and no murmurs Rate: regular rate Rhythm: regular rhythm Heart sounds: S1 normal and S2 normal GI: Common normals: Normal to inspection, nondistended, normoactive bowel sounds present, soft to palpation, non-tender, no hepatosplenomegaly and no masses Palpation: soft and no hepatosplenomegaly Extremity: Common normals: normal to inspection, full ROM and normal capillary refill Neuro: Common normals: moves all extremities and no focal motor deficits Sensorium/orientation: alert Motor exam: strength 5/5 throughout Psych: Appearance: well kempt Insight: fair Judgement: fair Other: Mildly anxious but appropriate. Skin: Common normals: no rashes or lesions noted General skin exam: no rashes or lesions noted Course Course ED Course: 79-year-old female with reported weakness, mild aphthous ulcers and swelling of the in her gums. No evidence of thrush or trauma. Suspect viral process. Rationale discussed. Unlikely that this would be from her new rosuvastatin, that is not a common side effect. If this is a viral process, it should heal within a couple of weeks. Rationale discussed. I was detained for couple of hours prior to seeing the patient after her arrival to the ED and we did get some basic labs while we were waiting, caring for the critically ill patients. These are reviewed with patient and they are very reassuring. No signs of an acute cardiac process, rhabdomyolysis, liver enzyme elevation, leukocytosis or other strange findings. Viral swabs are also negative. She may be having a little bit of changes in her legs associated with the rosuvastatin but I do not think there is anything pathological related to that. Counseled the patient that a lot of times the aphthous ulcers will also, some mild GI symptoms. These would not really be concerning. Be aphthous ulcers do take a while to heal, can be 2-3 weeks. I would like for her to make a follow-up appointment with her primary care provider in about 2 weeks. If her symptoms have resolved, she may cancel the appointment but if it is still persistent, we should re-evaluate and consider other diagnoses. Alarm symptoms reviewed that would warrant ED presentation. Counseled the patient that it is okay to use gentle sleep aids like melatonin, Unisom to help with her anxiety related to these mild symptoms and starting a new medication. I would like her to continue on the rosuvastatin for now as it may be difficult to tell which is the etiology of her symptoms without this information. She verbalized understanding and agreement. Vital Signs Vital signs: Initial Vital Signs Temperature 98.1 F 12/23/24 05:13 Temperature Source Temporal Artery Scan 12/23/24 05:13 Pulse Rate 77 12/23/24 05:13 Respiratory Rate 16 12/23/24 05:13 Blood Pressure 152/78 H 12/23/24 05:13 Blood Pressure Mean 102 12/23/24 05:13 Blood Pressure Position Sitting 12/23/24 05:13 Pulse Oximetry 96 12/23/24 05:13 Oxygen Delivery Method Room Air 12/23/24 05:13 Vital Signs Temperature 98.1 F 12/23/24 05:13 Pulse Rate 77 12/23/24 05:13 Respiratory Rate 16 12/23/24 05:13 Blood Pressure 152/78 H 12/23/24 05:13 Pulse Oximetry 96 12/23/24 05:13 Oxygen Delivery Method Room Air 12/23/24 05:13 Temperature 98.1 F 12/23/24 05:13 Pulse Rate 77 12/23/24 05:13 Respiratory Rate 16 12/23/24 05:13 Blood Pressure 152/78 H 12/23/24 05:13 Pulse Oximetry 96 12/23/24 05:13 Oxygen Delivery Method Room Air 12/23/24 05:13 Medical Decision Making Lab Data Lab results reviewed: Yes I reviewed the patient's lab results Lab results narrative: Labs very reassuring. No significant leukocytosis, dehydration, liver enzyme elevation, elevated inflammatory markers, viral abnormalities, very reassuring. Labs: Lab Results 12/23/24 Range/Units 05:58 WBC 9.21 (4.50-11.00) K/uL RBC 4.12 (4.00-5.20) m/uL Hgb 12.8 (12.0-16.0) gm/dL Hct 38.9 (33.0-51.0) % MCV 94 (80-100) fL MCH 31 (26-34) pg MCHC 33 (32-36) gm/dL RDW Coeff of David 12.8 (11.5-15.5) % Plt Count 184 (140-440) K/uL Neut % (Auto) 76.2 H (42.0-72.0) % Lymph % (Auto) 16.6 L (20-44) % [place] % (Auto) 6.4 (0.0-11.0) % Eos % (Auto) 0.3 (0.0-7.0) % Baso % (Auto) 0.4 (0.0-3.0) % Neut # (Auto) 7.00 (1.7-7.0) K/uL Lymph # (Auto) 1.50 (0.90-2.90) K/uL [place] # (Auto) 0.60 (0.00-0.90) K/UL Eos # (Auto) 0.03 (0.00-0.50) K/uL Baso # (Auto) 0.04 (0.00-0.30) K/uL Abs Immat Gran (auto) 0.01 (0.00-0.30) K/uL Imm/Tot Granulo (auto) 0.1 % Sodium 138 (135-149) mmol/L Potassium 4.8 (3.6-5.1) mmol/L Chloride 105 (96-114) mmol/L Carbon Dioxide 23 (20-32) mmol/L Anion Gap 10 (7-15) mEq/L BUN 20 (7-30) mg/dL Creatinine 1.3 (0.5-1.5) mg/dL Estimated GFR 41 ml/min Glucose 118 H (60-115) mg/dL Lactate 1.2 (0.5-1.9) mmol/L Calcium 9.6 (8.4-10.6) mg/dL Total Bilirubin 0.8 (0.1-1.5) mg/dL AST 27 (12-35) U/L ALT 19 (4-35) U/L Alkaline Phosphatase 70 (40-150) U/L NT-Pro-B Natriuret Pep 260 pg/mL Total Protein 7.7 (6.0-8.3) g/dL Albumin 4.8 (3.3-5.0) g/dL SARS-CoV-2 (PCR) Negative SARS-CoV-2 (Negative) Influenza Type A (PCR) Negative PCR FLU A (Negative) Influenza Type B (PCR) Negative PCR FLU B (Negative) Discharge Plan Discharge Clinical Impression: Aphthous ulcer, Acute mucositis Patient Disposition: Home w/ Parent or Adult Condition: Stable Instructions: Oral Mucositis (ED) Additional Instructions: As we discussed, the swelling of your lower gums and inner lower lip is consistent with mucositis which is an inflammation of the mucus linings of the mouth and GI tract. This is typically caused by a virus, similar to the hand foot and mouth virus. You have a couple of blisters that are especially characteristic of this. I do not think that those symptoms are caused by your new cholesterol medication. But the leg weakness may be related. Things seemed safe based on your labs and abilities here in the emergency room. I would like for you to continue on the rosuvastatin, your cholesterol medicine as prescribed for now. If I am correct and the mucositis and aphthous ulcers are caused by the virus, they should improve within about 2 weeks. They can be quite tender so try to avoid acidic foods or other things that seem to irritate. You may take Tylenol 650 mg every 6 hours as needed for discomfort. You may also use ibuprofen 400 mg every 6 hours as needed if the Tylenol is not sufficient. It is okay to use gentle sleep aids if the anxiety is bothersome like melatonin or Unisom. Please make a follow-up appointment with her primary care doctor in 2 weeks. If your symptoms have resolved, you may cancel the appointment. But if they persist, we should do additional testing and changes to your medicine regimen in order to better treat this. Activity Level: No Restrictions Discharge Diet: Regular Prescriptions: No Action sertraline 100 mg tablet 100 mg PO QAM rosuvastatin 10 mg tablet 10 mg PO QPM Follow Up/Referrals: Kristi Phan DO [Primary Care Provider] - Stand Alone Forms: [employer] Info Instructions
[2024-12-23 16:01] LABS: Troponin, Point-of-Care* 0.01 ng/ml (0.01-0.04)
== END 2024-12-23 07:41 | disposition home or self-care (01) ==
PROVIDERS: Emergency Provider Family Medicine; PCP Family Medicine
DX: K12.0 Recurrent oral aphthae (principal); K12.30 Oral mucositis (ulcerative), unspecified
CPT/HCPCS: 36415; 80053; 81003; 83605; 83880; 84484; 85025; 87631; 99283